=== PATIENT | female | born 2000 | race Caucasian/White ===

== ENCOUNTER 2021-11-15 20:39 | Emergency (ER) | payer MEDICAID ==
[~2021-11-15] VITALS: Ht 162.6 cm; Wt 84.0 kg
[2021-11-16] MEDS ORDERED: BACITRACIN ZINC OINT UDPKT TOP ONE (01:15)
[2021-11-16] MEDS ORDERED: LIDOCAINE HCL/EPINEPHRINE 1%-EPI 1:100,000 20 ML VIAL INFIL ONE (01:15)
[2021-11-16] MEDS: LIDOCAINE HCL/EPINEPHRINE 1%-EPI 1:100,000 10 ML VIAL INFIL NR ×2 (02:30→03:13)
[2021-11-16] MEDS ORDERED: LORAZEPAM 1MG TABLET PO ONE (02:45)
[2021-11-16] MEDS ORDERED: AMOXICILLIN/POTASSIUM CLAVULANATE 875/125MG TAB PO ONE (03:30)
[2021-11-16] MEDS ORDERED: AMOX-424 MT (03:30)
[2021-11-16 03:38] VITALS: BP 123/77
== END 2021-11-16 03:48 | disposition home or self-care (01) ==
LOC: ER 20:39
DX: Z45.812 Encounter for adjustment or removal of left breast implant (principal); M79.5 Residual foreign body in soft tissue
CPT/HCPCS: 99283; J3490; Z7610

== ENCOUNTER 2022-05-26 11:15 | Emergency (ER) | payer OTHER, MEDICAID ==
[~2022-05-26] VITALS: Ht 162.6 cm; Wt 75.0 kg
[~2022-05-26 11:15] MED LIST: AMOX-424 MT
[2022-05-26 11:17] VITALS: BP 130/78
[2022-05-26] MEDS ORDERED: ACETAMINOPHEN 325MG TABLET PO STA (11:38)
[2022-05-26] MEDS ORDERED: METHYLPREDNISOLONE SOD SUCC 125 MG/2 ML VIAL IV STA (11:38)
[2022-05-26] MEDS ORDERED: ALBUTEROL 6.7GM HFA INHALER ORI ONE (11:45)
[2022-05-26] MEDS ORDERED: SODIUM CHLORIDE 0.9% 1,000 ML IV ONE (11:45)
[2022-05-26 12:16] LABS: BASOPHILS % 0.5 % (0.0-2.0); CHLORIDE 106 mEq/L (98-107); EOSINOPHILS % 1.1 % (0.0-5.0); HEMATOCRIT. 43.9 % (36.0-48.0); HEMOGLOBIN. 14.5 g/dL (12.0-16.0); LYMPHOCYTES % 13.7 % (20.0-50.0); MEAN CORPUSCULAR HEMOGLOBIN 29.3 pg (28.0-32.0); MEAN CORPUSCULAR VOLUME 88.5 fL (81.0-99.0); MEAN PLATELET VOLUME 8.5 fl (7.4-10.4); MONOCYTES % 10.2 % (2.0-8.0); NEUTROPHILS % 74.5 % (40.0-76.0); PLATELET 235 x1000/uL (130-400); RED BLOOD CELL COUNT 4.96 mill/uL (4.2-5.4); RED CELL DISTRIBUTION WIDTH 13.4 % (11.6-14.6)
[2022-05-26] MEDS ORDERED: ALBU90AE INH (13:18)
[2022-05-26] MEDS ORDERED: P20 MT (13:18)
[2022-05-26] MEDS ORDERED: IBUP-2028 MT (13:18)
== END 2022-05-26 13:35 | disposition home or self-care (01) ==
LOC: ER 11:15
DX: U07.1 COVID-19 (principal); J45.901 Unspecified asthma with (acute) exacerbation
CPT/HCPCS: 36415; 71045; 80053; 81025; 83880; 84484; 85025; 94640; 96361; 96374; 99284; J2930; J7030; Z7610